=== PATIENT | female | born 1990 | race African-American/Black ===

== ENCOUNTER 2023-10-31 14:34 | Emergency (ER) | payer OTHER ==
[~2023-10-31] VITALS: Ht 180.3 cm; Wt 53.0 kg
[2023-10-31] MEDS ORDERED: ADDE30CA3 PO (14:45)
[2023-10-31 18:37] LABS: HCG, SERUM QUALITATIVE POSITIVE (NEGATIVE)
[2023-10-31 19:22] LABS: HCG, SERUM QUANTITATIVE 2.8 MIU/ML (<4.2)
[2023-10-31] MEDS: cefTRIAXone SOD 1GM VIAL IM ONE (20:17)
[2023-10-31] MEDS: LIDOCAINE 1% SDV 5ML VIAL DILUENT ONE (20:18)
[2023-10-31] MEDS ORDERED: METR375C3 PO (20:21)
[2023-10-31] MEDS ORDERED: DOXY-443 PO (20:21)
[2023-10-31 20:31] VITALS: BP 138/96; TEMP 99.5; O2SAT 99
== END 2023-10-31 20:30 | disposition home or self-care (01) ==
LOC: M ED 14:34
DX: T19.3XXA Foreign body in uterus, initial encounter (principal); N73.9 Female pelvic inflammatory disease, unspecified; Z79.899 Other long term (current) drug therapy; Z79.2 Long term (current) use of antibiotics
CPT/HCPCS: 84702; 84703; 96372; 99283; J0696

== ENCOUNTER → 2024-04-07 | Outpatient (REF) | payer OTHER ==
[~2024-04-07] MED LIST: ADDE30CA3 PO; DOXY-323 PO; METR375C3 PO
== END ==
LOC: M LAB REF 04-06 17:21 → M LABDRAWP 17:21
PROVIDERS: ATTEND Obstetrics & Gynecology Obstetrics
DX: O20.0 Threatened abortion (principal); Z3A.00 Weeks of gestation of pregnancy not specified